=== PATIENT | male | born 1950 | race Caucasian/White ===

== ENCOUNTER → 2018-02-27 08:42 | Outpatient (CLI) | payer MEDICARE, OTHER, SELFPAY ==
[2018-02-27 09:35] LABS: Cholesterol 188 mg/dL (140-199); HDL Cholesterol 81 mg/dL (40-60); LDL Cholesterol Calculated 94 mg/dL (<100); Triglycerides 64 mg/dL (35-150)
[2018-02-27 10:12] LABS: Prostate Specific Antigen Scrn < 0.064 ng/mL (0.1-4.0)
== END ==
PROVIDERS: PCP Family Medicine; Visit Provider Family Medicine
DX: E78.5 Hyperlipidemia, unspecified (principal); Z85.46 Personal history of malignant neoplasm of prostate
CPT/HCPCS: 36415; 80061; G0103

== ENCOUNTER → 2018-03-31 13:41 | Outpatient (CLI) | payer MEDICARE, OTHER, SELFPAY ==
--- NOTE | 2018-03-31 15:10 | PM.TREADMILL ---
Cardiac Stress Test Report Referral & Results Date Patient Seen: 03/31/18 Requesting provider: Mariia Peace Indication: Chest pain Rest ECG: Wide spread ST-T segment changes including T-wave inversions as well as possible LVH Procedure Note: Today following both written and verbal informed consent, the patient was exercised according to a standard Saeid protocol. The patient exercised for a total of 12 min to seconds achieving a maximum heart rate of 142. Patient's maximum systolic blood pressure was 190. This was an estimated 12.8 MET's. With exercise there were is TT segment changes including downsloping ST segment depression in leads 1, aVL as well as V5 and V6. These quickly resolved with cessation of exercise Normal heart rate and blood pressure response to exercise Rare PAC in recovery only Functional aerobic impairment way way way off the scale estimate his exercise capacity to be equal that of an active 39-year-old man Impression: Patient very nonspecific ECG changes in an odd distribution more likely related to underlying resting ECG abnormalities than ischemia. Amazing exercise capacity Please note: Actual ECG tracings can be found in the PACS system.
== END ==
PROVIDERS: PCP Family Medicine; Visit Provider Family Medicine
DX: R07.9 Chest pain, unspecified (principal)
CPT/HCPCS: 93016; 93017; 93018

== ENCOUNTER → 2019-03-11 15:48 | Outpatient (CLI) | payer MEDICARE, OTHER, SELFPAY ==
--- NOTE | 2019-03-11 15:51 | DI.RAD.S_ITS ---
PROCEDURE: XR KNEE LT 3V INDICATIONS: left lateral knee pain TECHNIQUE: 3 views of the knee were acquired. COMPARISON: None. FINDINGS: Bones: No fractures or dislocations. No suspicious bony lesions. Mild osteoarthritic changes are noted. Soft tissues: Small joint effusion. No suspicious soft tissue calcifications. IMPRESSION: Mild osteoarthritis. Dictated by: Deric Corona M.D. on 03/12/2019 at 11:25 Approved by: Deric Corona M.D. on 03/12/2019 at 11:26
== END ==
PROVIDERS: Family Provider Family Medicine; PCP Family Medicine; Visit Provider Nurse Practitioner Family
DX: M25.562 Pain in left knee (principal); M17.12 Unilateral primary osteoarthritis, left knee
CPT/HCPCS: 73562

== ENCOUNTER → 2019-03-26 07:35 | Outpatient (CLI) | payer MEDICARE, OTHER, SELFPAY ==
--- NOTE | 2019-03-26 | DI.MRI.S_ITS ---
PROCEDURE: MR KNEE LT WO CON INDICATIONS: internal derangement of L Knee TECHNIQUE: Noncontrast sagittal PD fast spin echo and T2 fast spin echo with fat saturation, sagittal 3-D FLASH with fat saturation; coronal T1 spin echo and PD fast spin echo with fat saturation, and axial PD fast spin echo with fat saturation through the knee. COMPARISON: [facility], CR, XR KNEE ARTHRITIC SERIES LT, 03/17/2019, 13:28. FINDINGS: Image quality: Excellent. Menisci: Intrasubstance signal change within the posterior horn of the lateral meniscus however seen on one pulse sequence only. There is also truncation of the free margin of the body of the lateral meniscus Prominent T2 hyperintensity and edema seen at the posterior meniscocapsular junction of the medial meniscus, for example image 5 series 7 suggestive of meniscocapsular separation/peripheral meniscal tear. Cruciate ligaments: The anterior and posterior cruciate ligaments appear intact. Medial structures: The medial collateral ligament appears intact. Semimembranosus tendon appears thickened with mild T2 hyperintensity. Visualized portions of the pes anserinus tendons appear normal. No abnormal bursal fluid. Lateral structures: The lateral collateral ligament demonstrates thickening and intrasubstance signal change in keeping with low grade sprain, statistically chronic, although technically age indeterminate. Biceps femoris tendon appears intact. Popliteus tendon grossly unremarkable. Iliotibial band appears intact. Anterior structures: The quadriceps and patellar tendons appear intact. There is mild distal patellar tendinopathy and chronic osseous fragmentation at the tibial tuberosity keeping with sequela of chronic Les-Schlatter syndrome. Patellar alignment is normal. No femoral trochlear dysplasia or ventral trochlear prominence. No edema in the infrapatellar fat pad. Bones and cartilage: Prominent marrow edema involving the lateral femoral condyle with a possible nondisplaced incomplete subchondral fracture line seen on image 18 series 10. Within the lateral compartment, mild partial thickness loss of the femoral articular cartilage Within the medial compartment, mild partial thickness loss of the femoral articular cartilage without focal defect. Within the patellofemoral compartment, diffuse partial thickness loss of the patellar and femoral trochlear articular cartilage with subchondral marrow signal changes in the patella. Joint space: Small joint effusion. Trace fluid between the semimembranosus medial gastrocnemius tendons raising possibility of small or ruptured Au's cyst. Multiple loose bodies are noted within the posterior knee, image 44 series 8 measuring 1 cm potentially within collapsed Au's cyst. Additional smaller loose body measuring 5 mm on image 26 series 8 in the posteromedial knee. This could also be within collapsed Au's cyst. IMPRESSION: Lateral femoral condyle acute marrow contusion, and nondisplaced incomplete subchondral fracture. Findings suspicious for posterior meniscocapsular separation versus peripheral meniscal tear. Also suspect lateral meniscal tear although recommend close clinical correlation, since this is suboptimally visualized. Small joint effusion. Multiple loose bodies. Degenerative joint disease, most pronounced in the patellofemoral compartment. Insertional semimembranosus tendinopathy. Distal patellar tendinopathy and sequela of chronic Les-Schlatter syndrome. Dictated by: Wilfrido Rider M.D. on 03/26/2019 at 10:14 Approved by: Wilfrido Rider M.D. on 03/26/2019 at 10:33
== END ==
PROVIDERS: Family Provider Family Medicine; PCP Family Medicine; Visit Provider Orthopaedic Surgery
DX: S80.02XA Contusion of left knee, initial encounter (principal); S72.435A Nondisplaced fracture of medial condyle of left femur, initial encounter for closed fracture; M25.462 Effusion, left knee; M17.12 Unilateral primary osteoarthritis, left knee; M92.52 Juvenile osteochondrosis of tibia tubercle
CPT/HCPCS: 73721

== ENCOUNTER → 2019-12-04 08:44 | Outpatient (CLI) | payer MEDICARE, OTHER, SELFPAY ==
[2019-12-04 09:33] LABS: Add Manual Diff / Slide Review NO; Basophils Absolute Auto 0 /uL (0-100); Basophils Percent Auto 0.7 % (0-2); Eosinophils Absolute Auto 100 /uL (0-450); Eosinophils Percent Auto 2.5 % (2-4); Hematocrit 41.9 % (41-53); Hemoglobin 14.8 g/dL (13.5-17.5); Lymphocytes Absolute Auto 1000 /uL (1100-4500); Lymphocytes Percent Auto 25.4 % (25-40); Mean Corpuscular HGB Conc 35.3 % (30-36); Mean Corpuscular Hemoglobin 31.9 PG (26-34); Mean Corpuscular Volume 90.5 fL (80-100); Monocytes Absolute Auto 400 /uL (0-900); Monocytes Percent Auto 9.7 % (3-14); Neutrophils Absolute Auto 2400 /uL (1500-7000); Neutrophils Percent Auto 61.7 % (50-75); Platelet Count 197 X10^3/uL (150-400); Red Blood Cell Count 4.63 X10^6/uL (4.5-5.9); Red Cell Distribution Width 13.9 % (11.6-14.8); White Blood Cell Count 3.9 X10^3/uL (4.5-11.0)
[2019-12-04 10:04] LABS: Alanine Aminotransferase 35 IU/L (<50); Albumin 4.3 g/dL (3.5-5.0); Albumin Globulin Ratio 1.5 (1.0-2.8); Alkaline Phosphatase 79 U/L (38-126); Aspartate Aminotransferase 39 IU/L (17-59); BUN Creatinine Ratio 20.9 (6-22); Bilirubin Total 0.5 mg/dL (0.2-1.3); Blood Urea Nitrogen 19 mg/dL (9-20); Calcium 9.6 mg/dL (8.4-10.2); Carbon Dioxide 27 mmol/L (22-32); Chloride 106 mmol/L (98-107); Cholesterol 191 mg/dL (140-199); Estimated Glomerular Filt Rate > 60.0 mL/min (>60); Globulin 2.9 g/dL (1.7-4.1); Glucose 101 mg/dL (80-110); HDL Cholesterol 79 mg/dL (40-60); HEMOLYSIS < 15 (0-50); LDL Cholesterol Calculated 98 mg/dL (<100); Potassium 4.7 mmol/L (3.4-5.1); Sodium 140 mmol/L (137-145); Total Protein 7.2 g/dL (6.3-8.2); Triglycerides 72 mg/dL (35-150)
[2019-12-04 10:34] LABS: Prostate Specific Antigen Scrn < 0.064 ng/mL (0.1-4.0)
== END ==
PROVIDERS: Family Provider Family Medicine; PCP Family Medicine; Referring Provider Family Medicine; Visit Provider Family Medicine
DX: E78.5 Hyperlipidemia, unspecified (principal); I51.7 Cardiomegaly; Z85.46 Personal history of malignant neoplasm of prostate; Z12.5 Encounter for screening for malignant neoplasm of prostate
CPT/HCPCS: 36415; 80053; 80061; 85025; G0103

== ENCOUNTER → 2021-04-11 08:03 | Outpatient (CLI) | payer MEDICARE, OTHER, SELFPAY ==
[2021-04-11 09:47] LABS: Add Manual Diff / Slide Review NO; Basophils Absolute Auto 0 /uL (0-100); Basophils Percent Auto 0.7 % (0-2); Eosinophils Absolute Auto 100 /uL (0-450); Eosinophils Percent Auto 3.8 % (2-4); Hematocrit 43.3 % (41-53); Hemoglobin 14.8 g/dL (13.5-17.5); Lymphocytes Absolute Auto 900 /uL (1100-4500); Lymphocytes Percent Auto 27.3 % (25-40); Mean Corpuscular HGB Conc 34.1 % (30-36); Mean Corpuscular Hemoglobin 30.5 PG (26-34); Mean Corpuscular Volume 89.5 fL (80-100); Monocytes Absolute Auto 300 /uL (0-900); Monocytes Percent Auto 9.1 % (3-14); Neutrophils Absolute Auto 2000 /uL (1500-7000); Neutrophils Percent Auto 59.1 % (50-75); Platelet Count 173 X10^3/uL (150-400); Red Blood Cell Count 4.84 X10^6/uL (4.5-5.9); Red Cell Distribution Width 13.7 % (11.6-14.8); White Blood Cell Count 3.3 X10^3/uL (4.5-11.0)
[2021-04-11 10:05] LABS: Alanine Aminotransferase 34 IU/L (<50); Albumin 4.2 g/dL (3.5-5.0); Albumin Globulin Ratio 1.4 (1.0-2.8); Alkaline Phosphatase 76 U/L (38-126); Aspartate Aminotransferase 40 IU/L (17-59); Bilirubin Total 0.6 mg/dL (0.2-1.3); Blood Urea Nitrogen 19 mg/dL (9-20); Calcium 9.3 mg/dL (8.4-10.2); Carbon Dioxide 29 mmol/L (22-32); Chloride 104 mmol/L (98-107); Cholesterol 200 mg/dL (140-199); Estimated Glomerular Filt Rate > 60.0 mL/min (>60); Globulin 2.9 g/dL (1.7-4.1); Glucose 100 mg/dL (80-110); HDL Cholesterol 95 mg/dL (40-60); HEMOLYSIS < 15 (0-50); LDL Cholesterol Calculated 89 mg/dL (<100); Potassium 5.2 mmol/L (3.4-5.1); Sodium 141 mmol/L (137-145); Total Protein 7.1 g/dL (6.3-8.2); Triglycerides 78 mg/dL (35-150)
[2021-04-11 10:31] LABS: Prostate Specific Antigen Scrn < 0.064 ng/mL (0.1-4.0)
== END ==
PROVIDERS: Family Provider Family Medicine; PCP Family Medicine; Referring Provider Family Medicine; Visit Provider Family Medicine
DX: C61 Malignant neoplasm of prostate (principal); E78.5 Hyperlipidemia, unspecified; Z12.5 Encounter for screening for malignant neoplasm of prostate
CPT/HCPCS: 36415; 80053; 80061; 85025; G0103

== ENCOUNTER → 2021-08-11 12:01 | Outpatient (CLI) | payer MEDICARE, OTHER, SELFPAY ==
--- NOTE | 2021-08-11 12:07 | DI.CT.S_ITS ---
PROCEDURE: CT SINUS SCREEN WO CON INDICATIONS: Phantosmia TECHNIQUE: Noncontrast 3.0 mm axial images acquired from the frontal sinuses to the mid-sella, with coronal and sagittal reformats. For radiation dose reduction, the following was used: automated exposure control, adjustment of mA and/or kV according to patient size. COMPARISON: None. FINDINGS: Image quality: Excellent. Maxillary Sinuses: No bony remodeling or destruction. Sinuses are clear. Ethmoid Air Cells: No bony remodeling or destruction. Sinuses are clear. Sphenoid Sinuses: No bony remodeling or destruction. Sinuses are clear. Frontal Sinuses: No bony remodeling or destruction. Sinuses are clear. Ostiomeatal Complexes: Ostiomeatal complexes are patent. No Julián cells. Miscellaneous: Visualized intra-orbital contents are normal. No rinku bullosa or paradoxical turbinate curvature. No nasal septal deviation. IMPRESSION: Normal CT of the paranasal sinuses Approved by: Yadiel Munguia M.D. on 08/11/2021 at 12:31
== END ==
PROVIDERS: Family Provider Family Medicine; PCP Family Medicine; Referring Provider Family Medicine; Visit Provider Family Medicine
DX: R44.2 Other hallucinations (principal); R43.9 Unspecified disturbances of smell and taste
CPT/HCPCS: 70486

== ENCOUNTER → 2023-01-22 09:47 | Outpatient (CLI) | payer MEDICARE, OTHER, SELFPAY ==
[2023-01-22 10:29] LABS: Add Manual Diff / Slide Review NO; Basophils Absolute Auto 0 /uL (0-100); Basophils Percent Auto 0.8 % (0-2); Eosinophils Absolute Auto 100 /uL (0-450); Eosinophils Percent Auto 3.2 % (2-4); Hematocrit 40.6 % (41-53); Hemoglobin 13.9 g/dL (13.5-17.5); Lymphocytes Absolute Auto 1000 /uL (1100-4500); Lymphocytes Percent Auto 27.3 % (25-40); Mean Corpuscular HGB Conc 34.3 % (30-36); Mean Corpuscular Hemoglobin 30.6 PG (26-34); Mean Corpuscular Volume 89.3 fL (80-100); Monocytes Absolute Auto 300 /uL (0-900); Monocytes Percent Auto 8.2 % (3-14); Neutrophils Absolute Auto 2200 /uL (1500-7000); Neutrophils Percent Auto 60.5 % (50-75); Platelet Count 167 X10^3/uL (150-400); Red Blood Cell Count 4.55 X10^6/uL (4.5-5.9); Red Cell Distribution Width 14.2 % (11.6-14.8); White Blood Cell Count 3.6 X10^3/uL (4.5-11.0)
[2023-01-22 10:45] LABS: Alanine Aminotransferase 46 IU/L (<50); Albumin 4.1 g/dL (3.5-5.0); Albumin Globulin Ratio 1.4 (1.0-2.8); Alkaline Phosphatase 72 U/L (38-126); Aspartate Aminotransferase 48 IU/L (17-59); BUN Creatinine Ratio 20.4 (6-22); Bilirubin Total 0.5 mg/dL (0.2-1.3); Blood Urea Nitrogen 22 mg/dL (9-20); Calcium 8.9 mg/dL (8.4-10.2); Carbon Dioxide 30 mmol/L (22-32); Chloride 106 mmol/L (98-107); Cholesterol 198 mg/dL (140-199); Estimated Glomerular Filt Rate > 60 mL/min (>60); Glucose 97 mg/dL (80-110); HDL Cholesterol 83 mg/dL (40-60); HEMOLYSIS < 15 (0-50); LDL Cholesterol Calculated 101 mg/dL (<100); Potassium 4.7 mmol/L (3.4-5.1); Sodium 139 mmol/L (137-145); Total Protein 7.1 g/dL (6.3-8.2); Triglycerides 71 mg/dL (35-150)
[2023-01-22 11:15] LABS: TSH w/ Reflex to FT4 1.78 uIU/mL (0.47-4.68)
[2023-01-22 11:26] LABS: Hep C Virus Ab w/Reflex Quant NEGATIVE s/c (NEGATIVE)
== END ==
PROVIDERS: Family Provider Family Medicine; PCP Family Medicine; Referring Provider Family Medicine; Visit Provider Family Medicine
DX: R07.9 Chest pain, unspecified (principal); R53.83 Other fatigue; Z13.9 Encounter for screening, unspecified
CPT/HCPCS: 36415; 80053; 80061; 84443; 85025; 86803

== ENCOUNTER → 2023-03-19 15:05 | Outpatient (CLI) | payer MEDICARE, OTHER, SELFPAY ==
--- NOTE | 2023-03-20 09:15 | DI.NM.S_ITS ---
DATE OF SERVICE: 03/19/2023 PROCEDURE: Exercise stress test. INDICATIONS: Exertional fatigue, chest tightness, some shortness of breath. CARDIAC STRESS: Patient underwent exercise stress test under the supervision of an attending staff. He walked on Saeid protocol for 9 minutes, achieved maximum heart rate of 110, which was 74% of predicted heart rate, 10.1 METS of workload, and SUNIL -33%. In view of EKG changes and chest tightness, exercise stress test was discontinued. However, the patient could have walked more. Resting blood pressure of 136/82. Flat blood pressure response with peak blood pressure 140/77. Baseline rhythm was sinus bradycardia with heart rate 40, likely LVH with up to 0.[address] depression in inferior leads, as well as leads V3 to V6, along with T-wave inversion in those leads, as well as T-wave inversion in lead L1. During stress, the ST depression and T-wave inversion in inferior leads, leads VT to V6 and L1 got more pronounced. In aVR, there appears to be [address] elevation. During the second stage of exercise, the patient started having chest tightness sensation, which did not get worse with continued exercise and resolved in recovery quickly. No significant arrhythmia is seen. CONCLUSION: This is an abnormal exercise stress test and likely has ischemic changes as patient had [address] elevation in aVR which got resolved around 2-3 minutes in recovery. Baseline left ventricular hypertrophy with strain pattern in inferior leads and anterior leads which got more pronounced during exercise. The patient has chest tightness sensation in his chest which started at the second stage of exercise and quickly resolved in recovery. Flat blood pressure response. Some maximal stress test as patient achieved 74% of target heart rate. However, patient had underlying sinus bradycardia with heart rate 40. The test was discontinued because of abnormal EKG changes and his symptoms, however, according to the midlevel who supervised the stress test, patient could have walked more. Functional aerobic impairment -33% suggestive of excellent exercise tolerance. In view of abnormal EKG changes, symptoms, patient is 72-year-old male, will recommend further evaluation to rule out coronary artery disease, and it is reasonable to consider left heart catheterization. Momo Grover - FLORA/casey/YADIRA doc#: [id number]/job#: [id number] dd: 03/19/2023 17:22:00 dt: 03/19/2023 22:39:00 DICTATING MD/COPIES TO: Ever Richadrson MD; Mariia Peace MD COPIES MNE: KHADIJAH;
== END ==
PROVIDERS: Family Provider Family Medicine; PCP Family Medicine; Referring Provider Family Medicine; Visit Provider Family Medicine
DX: R07.9 Chest pain, unspecified (principal); I51.7 Cardiomegaly; R00.1 Bradycardia, unspecified; R94.31 Abnormal electrocardiogram [ECG] [EKG]
CPT/HCPCS: 93017

== ENCOUNTER → 2023-07-02 07:46 | Outpatient (CLI) | payer MEDICARE, OTHER, SELFPAY ==
[2023-07-02 09:35] LABS: Hematocrit 42.2 % (41-53); Hemoglobin 14.3 g/dL (13.5-17.5); Mean Corpuscular HGB Conc 33.8 % (30-36); Mean Corpuscular Hemoglobin 30.8 PG (26-34); Mean Corpuscular Volume 91.1 fL (80-100); Platelet Count 168 X10^3/uL (150-400); Red Blood Cell Count 4.63 X10^6/uL (4.5-5.9); Red Cell Distribution Width 14.1 % (11.6-14.8)
[2023-07-02 10:02] LABS: BUN Creatinine Ratio 19.6 (6-22); Blood Urea Nitrogen 20 mg/dL (9-20); Calcium 9.4 mg/dL (8.4-10.2); Carbon Dioxide 28 mmol/L (22-32); Chloride 103 mmol/L (98-107); Estimated Glomerular Filt Rate > 60 mL/min (>60); Glucose 92 mg/dL (80-110); HEMOLYSIS < 15 (0-50); Potassium 4.5 mmol/L (3.4-5.1); Sodium 138 mmol/L (137-145)
== END ==
PROVIDERS: Family Provider Family Medicine; PCP Family Medicine; Referring Provider Internal Medicine Cardiovascular Disease; Visit Provider Internal Medicine Cardiovascular Disease
DX: R94.31 Abnormal electrocardiogram [ECG] [EKG] (principal)
CPT/HCPCS: 36415; 80048; 85027

== ENCOUNTER 2024-05-12 10:09 | Day surgery (SDC) | payer MEDICARE, OTHER, SELFPAY ==
[2024-05-12 10:30] VITALS: BP 135/79; PULSE 68; RESP 18; TEMP 36.4; O2SAT 97
--- NOTE | 2024-05-12 10:50 | P.HP_ITS ---
History of Present Illness History of Present Illness Date Patient Seen: 05/12/24 Time Patient Seen: 10:50 Chief complaint: [facility] [place] Narrative: 73-year-old man personal history of colonic polyps here for screening colonoscopy. Last colonoscopy approximately 5 years ago. No family history of colon cancer. No abdominal concerns today. [facility] Medical History Atrial fibrillation Insomnia Essential tremor Skin problem (2004) Benign familial tremor (1989) Colon polyps (2006) Urinary incontinence (2011) Mumps Measles Chicken pox Plantar warts (2004) Chronic back pain (1999) Foot pain (2011) RLS (restless legs syndrome) (1969) Anxiety (1984) Elevated PSA (2011) LVH (left ventricular hypertrophy) (1989) Prostate cancer (2011) Surgical History S/P CABG x 3 Anesthesia Status post radical cystoprostatectomy (05/22/12) Family History Brother Age: 84 Heart disease High cholesterol Diabetes mellitus Father Throat cancer Heart disease Sister Heart disease Diabetes mellitus COPD (chronic obstructive pulmonary disease) Mother Cardiac arrest Social History Smoking Status: Never smoker second hand exposure: No alcohol intake: current substance use type: does not use Meds Home Medications and Allergies Home Medications Medication Instructions Recorded Confirmed Type lorazepam 0.5 mg tablet 0.5 mg PO TID PRN sleep #90 tabs 04/14/21 05/12/24 Rx aspirin 81 mg chewable tablet 81 mg PO DAILY 08/19/23 05/12/24 History trazodone 50 mg tablet See Rx Instructions PO .COMPLEX 08/23/23 05/12/24 Rx #90 tabs atorvastatin 40 mg tablet 40 mg PO DAILY #90 tabs 10/21/23 05/12/24 Rx acyclovir 400 mg tablet See Rx Instructions .Route 04/27/24 05/12/24 Rx .COMPLEX #14 tabs escitalopram oxalate 20 mg tablet 20 mg PO DAILY #90 tabs 04/27/24 05/12/24 Rx cyclobenzaprine 5 mg tablet 5 mg PO TID PRN muscle spasm #20 05/03/24 05/12/24 Rx tabs metoprolol succinate 25 mg 25 mg PO DAILY 05/12/24 05/12/24 History tablet,extended release 24 hr Allergies Allergy/AdvReac Type Severity Reaction Status Date / Time No Known Drug Allergies Allergy Verified 05/12/24 10:22 Exam Vital Signs (past 8 hours): - 05/12/24 10:30 Temperature 97.6 F Pulse Rate 68 Respiratory Rate 18 Blood Pressure 135/79 Pulse Oximetry 97 Oxygen Delivery Method Room Air Oxygen Delivery Method Room Air Narrative Exam Narrative: General adult man alert oriented no acute distress Chest nonlabored respiration Extremities warm well perfused Assessment & Plan Assessment and plan (1) History of colonic polyps: Status: None Assessment & Plan narrative: The patient requires colorectal screening and colonoscopy is recommended. Technical details were discussed. Risks, benefits, alternatives explained. Risks including but not limited to myocardial infarction, aspiration, bleeding, pain, missed lesion, incomplete examination, need for further radiographic studies, intestinal injury, and need for major abdominal surgery were discussed. All questions were answered to their satisfaction, and they are in agreement with this plan. Time-Based Coding :: [TOTAL MINUTES] spent with patient and on the chart (including review of chart, obtaining history, exam, reviewing outside data, placing orders, documenting exam and treatment plan, and counseling patient) on [DATE].
--- NOTE | 2024-05-12 11:16 | P.OP.COLON_ITS ---
Operative Date/Time/Diagnoses Date of procedure: 05/12/24 Time of procedure: 11:16 Pre-op diagnosis: Personal history of colonic polyps Procedure & Clinicians Study performed: Screening colonoscopy Same procedure as scheduled: Yes Indications: Screening Surgeon: Jarod Hawkins Procedure Notes Procedure in detail: The history and physical was performed/updated and the patient is ASA class is 3. The procedure was discussed in detail with the patient. Potential risks complications including infection, bleeding, missed diagnosis, perforation, need for surgery, and were explained. Their questions were answered and informed consent was obtained. Patient was brought to the procedure room and placed standard monitoring equipment. The patient's vital signs were monitored continuously throughout the entire procedure. Prior to starting time-out was performed. The patient was placed in the left lateral recumbent position. Procedural sedation was administered by anesthesia. Examination began with a thorough inspection of the perianal area there was no evidence of fissures, fistulae, external hemorrhoids or cutaneous malignancy. The colonoscopy scope was then placed into the anal canal and was advanced to the cecum, which was identified by the ileocecal valve, the appendiceal orifice and the confluence of the taenia. The scope was then slowly withdrawn examining colon thoroughly in all directions, irrigating it of any residual stool. The scope was retroflexed within the rectum The patient tolerated the procedure well. They will be discharged once criteria are met. The prep was of fair quality. The withdrawl time was 7 minutes. FINDINGS * No polyps * Diverticulosis of distal colon * Internal hemorrhoids Findings: divertiulosis Impression: Normal colonoscopy Post-procedure Recommendations: High fiber diet Plan for aftercare: No need for further colonoscopy unless symptomatic Disposition: same day surgery
[2024-05-12 11:17] VITALS: BP 103/69; PULSE 72; RESP 12; TEMP 36.9; O2SAT 93
[2024-05-12 11:22] VITALS: BP 109/74; PULSE 67; RESP 18; O2SAT 94
[2024-05-12 11:27] VITALS: BP 121/77; PULSE 74; RESP 19; TEMP 36.9; O2SAT 96
[2024-05-12 11:41] VITALS: BP 129/82; PULSE 66; RESP 14; O2SAT 96
== END 2024-05-12 11:45 | disposition home or self-care (01) ==
PROVIDERS: Family Provider Family Medicine; PCP Family Medicine; Referring Provider Surgery; Visit Provider Surgery
PROC: 0DJD8ZZ Inspection of Lower Intestinal Tract, Via Natural or Artificial Opening Endoscopic (ICD-10-PCS; CPT 45378; principal; 2024-05-12 11:15)
DX: Z12.11 Encounter for screening for malignant neoplasm of colon (principal); Z86.0100 Personal history of colon polyps, unspecified; K57.30 Diverticulosis of large intestine without perforation or abscess without bleeding; K64.8 Other hemorrhoids
CPT/HCPCS: G0105; J2704

== ENCOUNTER → 2024-05-26 10:27 | Outpatient (CLI) | payer MEDICARE, OTHER, SELFPAY ==
[2024-05-26 12:03] LABS: Add Manual Diff / Slide Review NO; Basophils Absolute Auto 0 /uL (0-100); Basophils Percent Auto 0.7 % (0-2); Eosinophils Absolute Auto 100 /uL (0-450); Eosinophils Percent Auto 2.5 % (2-4); Hematocrit 45.5 % (41-53); Hemoglobin 15.2 g/dL (13.5-17.5); Lymphocytes Absolute Auto 1100 /uL (1100-4500); Mean Corpuscular HGB Conc 33.5 % (30-36); Mean Corpuscular Hemoglobin 30.9 PG (26-34); Mean Corpuscular Volume 92.3 fL (80-100); Monocytes Absolute Auto 400 /uL (0-900); Monocytes Percent Auto 10.6 % (3-14); Neutrophils Absolute Auto 2200 /uL (1500-7000); Neutrophils Percent Auto 57.2 % (50-75); Platelet Count 170 X10^3/uL (150-400); Red Blood Cell Count 4.93 X10^6/uL (4.5-5.9); Red Cell Distribution Width 13.9 % (11.6-14.8); White Blood Cell Count 3.9 X10^3/uL (4.5-11.0)
[2024-05-26 12:56] LABS: Alanine Aminotransferase 39 IU/L (<50); Albumin 4.2 g/dL (3.5-5.0); Albumin Globulin Ratio 1.5 (1.0-2.8); Alkaline Phosphatase 91 U/L (38-126); Aspartate Aminotransferase 49 IU/L (17-59); BUN Creatinine Ratio 17.3 (6-22); Bilirubin Total 0.5 mg/dL (0.2-1.3); Blood Urea Nitrogen 19 mg/dL (9-20); Calcium 9.2 mg/dL (8.4-10.2); Carbon Dioxide 26 mmol/L (22-32); Chloride 107 mmol/L (98-107); Cholesterol 238 mg/dL (140-199); Estimated Glomerular Filt Rate > 60 mL/min (>60); Globulin 2.8 g/dL (1.7-4.1); Glucose 87 mg/dL (80-110); HDL Cholesterol 83 mg/dL (40-60); HEMOLYSIS < 15 (0-50); Potassium 4.9 mmol/L (3.4-5.1); Sodium 138 mmol/L (137-145)
[2024-05-26 13:28] LABS: Prostate Specific Antigen Scrn < 0.064 ng/mL (0.1-4.0)
[2024-05-26 13:41] LABS: LDL Cholesterol Calculated 137 mg/dL (<100); Triglycerides 88 mg/dL (35-150)
== END ==
PROVIDERS: Family Provider Family Medicine; PCP Family Medicine; Referring Provider Family Medicine; Visit Provider Family Medicine
DX: I48.91 Unspecified atrial fibrillation (principal); E78.5 Hyperlipidemia, unspecified; Z12.5 Encounter for screening for malignant neoplasm of prostate; F41.9 Anxiety disorder, unspecified; Z95.1 Presence of aortocoronary bypass graft
CPT/HCPCS: 36415; 80053; 80061; 85025; G0103

== ENCOUNTER → 2024-05-26 11:25 | Outpatient (CLI) | payer MEDICARE, OTHER, SELFPAY | LOC: RESP 11:27 | PROVIDERS: Family Provider Family Medicine; PCP Family Medicine; Referring Provider Family Medicine; Visit Provider Family Medicine | DX: R06.02 Shortness of breath (principal); R94.2 Abnormal results of pulmonary function studies; I48.91 Unspecified atrial fibrillation; E78.5 Hyperlipidemia, unspecified; Z12.5 Encounter for screening for malignant neoplasm of prostate; F41.9 Anxiety disorder, unspecified; Z95.1 Presence of aortocoronary bypass graft | CPT/HCPCS: 36415; 80053; 80061; 85025; 94060; 94726; 94729; G0103 ==

== ENCOUNTER → 2024-07-15 10:14 | Outpatient (CLI) | payer MEDICARE, OTHER, SELFPAY ==
--- NOTE | 2024-07-15 10:16 | DI.RAD.S_ITS ---
PROCEDURE: XR LUMBAR SPINE 2-3V INDICATIONS: THIGH PAIN TECHNIQUE: 3 views of the lumbar spine were acquired. COMPARISON: None. FINDINGS: Bones: 5 [id number] vertebrae are present. There is normal bony alignment. No vertebral body compression fractures. No suspicious bony lesions. Discs: Moderate L3-4, severe L4-5 and mild L5-S1 degenerative disc disease appreciated. Severe L4-5 and L5-S1 degenerative facet disease noted Soft tissues: Overlying bowel gas pattern is normal. No suspicious soft tissue calcifications. IMPRESSION: Degeneration Dictated by: Osbaldo Livingston M.D. on 07/16/2024 at 17:21 Approved by: Osbaldo Livingston M.D. on 07/16/2024 at 17:22
== END ==
PROVIDERS: Family Provider Family Medicine; PCP Family Medicine; Referring Provider Family Medicine; Visit Provider Family Medicine
DX: M47.816 Spondylosis without myelopathy or radiculopathy, lumbar region (principal); M47.817 Spondylosis without myelopathy or radiculopathy, lumbosacral region; M51.361 Other intervertebral disc degeneration, lumbar region with lower extremity pain only; M51.371 Other intervertebral disc degeneration, lumbosacral region with lower extremity pain only
CPT/HCPCS: 72100

== ENCOUNTER → 2024-10-19 10:06 | Outpatient (CLI) | payer MEDICARE, OTHER, SELFPAY ==
--- NOTE | 2024-10-19 10:07 | DI.MRI.S_ITS ---
PROCEDURE: MR LUMBAR SPINE WO CON INDICATIONS: Right L4.5 pain TECHNIQUE: Noncontrast sagittal T1 spin echo and T2 fast echo, sagittal STIR, and T2 fast spin echo through the lumbar spine. In cases with scoliosis, additional coronal T2 fast spin echo may be performed. COMPARISON: None. FINDINGS: Image quality: Excellent. Alignment and Curvature: Levo scoliotic curvature. Straightening of the normal lumbar lordosis. Bone Marrow: Multilevel degenerative endplate changes. Marrow is of normal overall signal. No acute vertebral body compression fractures. Spinal Cord: Conus medullaris terminates at the L1 level. Visualized cord demonstrates normal signal and size. Paraspinous Soft Tissues: No paravertebral masses. T12-L1: Normal appearance. L1-L2: Mild facet arthropathy. No central canal or neural foraminal stenosis. L2-L3: Disc desiccation and moderate height loss. Diffuse disc bulge. Facet arthropathy and thickening of ligamentum flavum. Epidural lipomatosis. Owda-ff-cpljjsdd central canal stenosis. No significant neural foraminal stenosis. L3-L4: Disc desiccation and moderate height loss. Mild diffuse disc bulge. Facet arthropathy. Epidural lipomatosis. Mild to moderate central canal stenosis. No significant neural foraminal stenosis. L4-L5: Disc desiccation and severe height loss. Mild disc bulge. Facet arthropathy. Mild central canal stenosis. Moderate right and mild left neural foraminal stenosis. L5-S1: Disc desiccation and mild disc bulge. Facet arthropathy. No central canal stenosis. Severe left and mild right neural foraminal stenosis. IMPRESSION: 1. Multilevel degenerative changes of the lumbar spine as described above. 2. Wrro-lr-[id number] central canal stenosis at L2-L3 and L3-L4. 3. Severe left neural foraminal stenosis at L5-S1. Dictated by: Skinny Barahona M.D. on 10/19/2024 at 16:39 Approved by: Skinny Barahona M.D. on 10/19/2024 at 16:43
== END ==
LOC: MRI 10:07
PROVIDERS: Family Provider Family Medicine; PCP Family Medicine; Referring Provider Physical Medicine & Rehabilitation; Visit Provider Physical Medicine & Rehabilitation
DX: M48.07 Spinal stenosis, lumbosacral region (principal); M48.062 Spinal stenosis, lumbar region with neurogenic claudication; M47.26 Other spondylosis with radiculopathy, lumbar region; M47.27 Other spondylosis with radiculopathy, lumbosacral region; M51.16 Intervertebral disc disorders with radiculopathy, lumbar region; M51.17 Intervertebral disc disorders with radiculopathy, lumbosacral region
CPT/HCPCS: 72148

== ENCOUNTER 2024-11-24 09:34 | Outpatient (CLI) | payer MEDICARE, OTHER, SELFPAY ==
[2024-11-24] VITALS (8 sets, daily range): BP systolic 148–168; BP diastolic 71–80; PULSE 48–96; RESP 16–18; TEMP 36.4; O2SAT 93–99
[2024-11-24] MEDS: MIDAZOLAM 2 MG/2 ML VIAL IV (10:50)
[2024-11-24] MEDS: BUPIVACAINE 0.25% (PF) VIAL 2 ML INJ (10:53)
[2024-11-24] MEDS: iopamidoL 15 ML VIAL 3 ML INJ (10:54)
[2024-11-24] MEDS: DEXAMETHASONE 10 MG/ML VIAL INJ (10:54)
[2024-11-24] MEDS: BETAMETHASONE 30 MG/5 ML MDV 12 MG INJ (10:55)
--- NOTE | 2024-11-24 11:06 | P.PCN_ITS ---
Date/Time/Diagnoses Date of procedure: 11/24/24 Time of procedure: 11:06 Pre-procedure diagnosis: 1. FORAMINAL STENOSIS WITH LE SYMPTOMS Post-procedure diagnosis: same Procedure Notes Procedure: 1. FLUOROSCOPICALLY GUIDED CONTRAST CONTROLLED TRANSFORAMINAL EPIDURAL STEROID INJECTION - RIGHT L4/5 TFESI Indications: Gene is referred by Dr. Peace for treatment of Foraminal Stenosis with Right LE Symptoms Physician: Nick Lopez Total Fluoroscopy time (seconds): 10 Total sedation minutes: 10 Complications: none Procedure in detail & Post-procedure care: FINDINGS Foraminal Nerve Root Compression secondary to disc disease and facet hypertrophy DESCRIPTION OF PROCEDURE Following review of allergy and review of potential side effects and complications, including, but not necessarily limited to, infection, allergic reaction, local tissue breakdown, stroke, temporary or permanent nerve injury, paralysis, and possible , the patient indicated that the patient understood and agreed to proceed. An informed consent document was signed by the patient, witnessed by a nurse, and placed in the patient's chart. Additionally, other treatment options including medications, modalities, and physical therapy were reviewed with the patient. After review of previous anaesthesic history and IV conscious sedation the patient was deemed safe to proceed with today?s procedure with IV conscious sedation as ASA class II designation. Safety time-out was performed to confirm patient ID, procedure to be performed and site of procedure. IV sedation was accomplished with a combination of 2mg of Versed was administered by the RN after DO order, titrated to patient comfort during the course of the procedure while the patient remained responsive to all verbal commands In the prone position following sterile prep and drape of the lumbar region, the right L4/5 posterior neuroforamen was identified fluoroscopically. The skin was anesthetized via a 25-gauge 1.5-inch needle with 1% lidocaine solution. At this point, a 25-gauge 3.5-inch spinal needle was atraumatically introduced and advanced under fluoroscopic guidance through the posterior right L4/5 neuroforamen to approximately the anterior aspect of the canal. Depth was confirmed on lateral view. Following negative aspiration, injection of approximately 1.5cc of Isovue 200 under live fluoroscopy in the AP view con firmed excellent flow along the nerve root, into the epidural space without vascular or intrathecal uptake observed Radiological data, including multiple fluoroscopic views of the lumbosacral spine, reveal a spinal needle at the right L4/5 posterior neuroforamen. Subsequent views show flow of contrast material flowing superiorly and inferiorly along the nerve root confirming epidural flow. Subsequently, a test dose of 1.5 cc of 0.25%marcaine solution was administered and patient was observed for two minutes for signs or symptoms of complications, including abdominal pain, shortness of breath, bilateral upper or lower extremity weakness, nausea and vomiting, prior to steroid injection. At this point, a total of 3cc or 10mg of dexamethasone and 12mg of betamethasone was injected without incident. The procedure tolerated the procedure well without signs or symptoms of complications prior to transfer to the recovery area continued monitoring without incident. The patient was then transferred to the recovery area where they were observed for an appropriate time after the injection. The patient reported a VAS score of 7 prior to the procedure and a post- procedure VAS of 0. POST OP INSTRUCTIONS The patient was provided a Pain Log to continue to record their response to the target-specific procedure prior to follow-up visit with their referring physician. Additionally, specific post-injection care instructions and a contact number to our office were provided if concerns arise regarding possible complications associated with the procedure are suspected.
== END 2024-11-24 11:25 | disposition home or self-care (01) ==
PROVIDERS: Family Provider Family Medicine; PCP Family Medicine; Referring Provider Physical Medicine & Rehabilitation; Visit Provider Physical Medicine & Rehabilitation
DX: M48.061 Spinal stenosis, lumbar region without neurogenic claudication (principal); M51.16 Intervertebral disc disorders with radiculopathy, lumbar region; M47.26 Other spondylosis with radiculopathy, lumbar region
CPT/HCPCS: 64483; 99152; J0702; J1100; J2250

== ENCOUNTER → 2025-01-13 07:38 | Outpatient (CLI) | payer MEDICARE, OTHER, SELFPAY ==
[2025-01-13 08:25] LABS: Add Manual Diff / Slide Review NO; Hematocrit 41.7 % (41-53); Hemoglobin 14.5 g/dL (13.5-17.5); Lymphocytes Absolute Auto 1100 /uL (1100-4500); Mean Corpuscular HGB Conc 34.8 % (30-36); Mean Corpuscular Hemoglobin 31.4 PG (26-34); Mean Corpuscular Volume 90.4 fL (80-100); Platelet Count 167 X10^3/uL (150-400)
[2025-01-13 09:02] LABS: Alanine Aminotransferase 38 IU/L (<50); Albumin 4.2 g/dL (3.5-5.0); Albumin Globulin Ratio 1.5 (1.0-2.8); Alkaline Phosphatase 87 U/L (38-126); Blood Urea Nitrogen 21 mg/dL (9-20); Calcium 9.1 mg/dL (8.4-10.2); Carbon Dioxide 26 mmol/L (22-32); Chloride 107 mmol/L (98-107); Cholesterol 169 mg/dL (140-199); Estimated Glomerular Filt Rate > 60 mL/min (>60); Globulin 2.8 g/dL (1.7-4.1); Glucose 96 mg/dL (70-99); HDL Cholesterol 77 mg/dL (40-60); HEMOLYSIS < 15 (0-50); Potassium 4.5 mmol/L (3.4-5.1); Sodium 140 mmol/L (137-145); Total Protein 7.0 g/dL (6.3-8.2); Triglycerides 105 mg/dL (35-150)
[2025-01-13 09:14] LABS: Thyroid Stimulating Hormone 1.90 uIU/mL (0.47-4.68)
[2025-01-13 09:33] LABS: Vitamin B12 403 pg/mL (239-931)
[2025-01-13 10:04] LABS: Appearance Urine UA CLEAR; Bilirubin Urine UA NEGATIVE (NEGATIVE); Color Urine UA YELLOW; Glucose Urine UA NEGATIVE (Negative); Ketones Urine UA NEGATIVE (NEGATIVE); Leukocyte Esterase Urine UA NEGATIVE (NEGATIVE); Nitrite Urine UA NEGATIVE (Negative); Occult Blood Urine UA NEGATIVE (Negative); Protein Urine UA NEGATIVE (Negative); Specific Gravity Urine UA 1.025 (1.000-1.035); Urobilinogen Urine UA 0.2 E.U./dL (0.2); pH Urine UA 5.5 (4.5-8.0)
[2025-01-13 10:09] LABS: Culture Indicated Urine Cult Not Indicated
[2025-01-13 10:26] LABS: Microalbumi Creatinin Ratio Ur 6.0 ug/mg CR (<30)
[2025-01-18 14:36] LABS: 1,25-Dihydroxy, Vitamin D-2 <10 pg/mL (.)
== END ==
PROVIDERS: PCP Family Medicine; Referring Provider Family Medicine; Visit Provider Family Medicine
DX: I10 Essential (primary) hypertension (principal); Z12.5 Encounter for screening for malignant neoplasm of prostate; R53.83 Other fatigue
CPT/HCPCS: 36415; 80053; 80061; 81001; 82043; 82570; 82607; 82652; 84443; 85025; G0103

== ENCOUNTER → 2025-02-25 07:04 | Outpatient (CLI) | payer MEDICARE, OTHER, SELFPAY ==
--- NOTE | 2025-03-11 20:35 | DI.NM.S_ITS ---
DATE OF SERVICE: 02/25/2025 PROCEDURE: Exercise perfusion study. INDICATIONS: Known history of bypass surgery, history of chest pain, abnormal simple exercise stress test. RADIOPHARMACEUTICAL: 25.7 millicurie technetium-99m Myoview IV was injected at stress and 27.2 millicurie technetium-99m Myoview IV was injected at rest. CARDIAC STRESS: The patient underwent exercise perfusion study under the supervision of an attending staff using standard Saeid protocol. He walked on Saeid protocol for 10 minutes and 40 seconds, achieved maximum heart rate of 133, which was 91% of target heart rate, SUNIL -62% and 12.8 METS of workload. Resting blood pressure 158/84 and peak blood pressure 210/110, suggestive of hypertensive blood pressure response. Baseline rhythm sinus with evidence of LVH and up to 1 mm horizontal/downsloping ST depression in anterolateral leads along with diffuse T-wave inversion in inferior leads and leads V2 to V6, and lateral leads. Likely, the patient has LVH with strain pattern. During rest, intermittent Wenckebach phenomenon seen as above. During stress, the patient has more pronounced ST depression in anterolateral and inferior leads. Occasional PVCs without any complex arrhythmias or significant bradycardia. No chest pain. The patient had shortness of breath. Normal recovery. RAW DATA: There is adequate myocardial uptake. GATED STUDY: Stress LV ejection fraction 68% without any obvious wall motion abnormalities. Resting end-diastolic volume 130 mL. TID ratio 0.98, which is within normal limits. MYOCARDIAL PERFUSION SCAN: Stress supine and resting supine images revealed small size, mildly decreased perfusion of basal inferior wall, which got resolved during stress prone images suggestive of diaphragmatic tissue attenuation artifact. No convincing ischemia or infarction pattern seen. CONCLUSION: This is a normal myocardial perfusion study. Excellent exercise tolerance. The patient walked on Saeid protocol for 10 minutes and 40 seconds with SUNIL -62%. Hypertensive blood pressure response. On baseline EKG, the patient has hypertensive changes with strain pattern with baseline ST-T abnormalities, which got more pronounced during exercise. Baseline intermittent Wenckebach seen as well. No complex arrhythmia during exercise. No chest pain. Preserved LV function. Overall, low-risk exercise myocardial perfusion study. Momo Grover Kingsley/OBED doc#: [id number]/job#: [id number] dd: 03/11/2025 17:06:00 dt: 03/11/2025 20:24:00 DICTATING MD/COPIES TO: Ever Richardson MD COPIES MNE: KHADIJAH;
== END ==
PROVIDERS: PCP Family Medicine; Referring Provider Family Medicine; Visit Provider Family Medicine
DX: I48.91 Unspecified atrial fibrillation (principal); R07.9 Chest pain, unspecified; I51.7 Cardiomegaly; Z95.1 Presence of aortocoronary bypass graft
CPT/HCPCS: 78452; 93017; A9502

== ENCOUNTER → 2025-03-17 15:08 | Outpatient (CLI) | payer MEDICARE, OTHER, SELFPAY ==
[2025-03-17 17:42] LABS: NT-proBNP (BNP-Adult 18+) 321 pg/mL (<125)
== END ==
PROVIDERS: PCP Family Medicine; Referring Provider Internal Medicine; Visit Provider Internal Medicine
DX: R06.02 Shortness of breath (principal)
CPT/HCPCS: 36415; 83880

== ENCOUNTER → 2025-03-30 15:11 | Outpatient (CLI) | payer MEDICARE, OTHER, SELFPAY ==
[2025-03-30 15:59] LABS: Blood Urea Nitrogen 19 mg/dL (9-20); Calcium 9.2 mg/dL (8.4-10.2); Carbon Dioxide 26 mmol/L (22-32); Chloride 106 mmol/L (98-107); Estimated Glomerular Filt Rate > 60 mL/min (>60); Glucose 101 mg/dL (70-99); HEMOLYSIS < 15 (0-50); Potassium 4.2 mmol/L (3.4-5.1); Sodium 140 mmol/L (137-145)
== END ==
PROVIDERS: PCP Family Medicine; Referring Provider Internal Medicine; Visit Provider Internal Medicine
DX: I50.32 Chronic diastolic (congestive) heart failure (principal)
CPT/HCPCS: 36415; 80048